=== PATIENT | male | born 1955 | race Caucasian/White ===

== ENCOUNTER 2016-12-31 10:17 | Outpatient (CLI) | payer BC ==
--- NOTE | 2016-12-31 13:18 | RAD ---
LUMBAR SPINE TWO VIEW: History: Low back pain, right leg pain. Surgery 6 weeks ago. Comparison: 03-12-16 FINDINGS: New posterior fusion at L2-3 without hardware complication. Retrolisthesis is similar. No new acute superimposed fracture or malalignment. Mild narrowing L4-5 and L5-S1. Calcifications of the aorta are present. IMPRESSION: Posterior spinal fusion at L2-3 without hardware complication. POS: [facility]IST
== END 2016-12-31 10:18 | disposition home or self-care (01) ==
LOC: TBSIIMAG 10:17
PROVIDERS: ATTEND Neurological Surgery
DX: M54.5 Low back pain (principal); Z98.1 Arthrodesis status
CPT/HCPCS: 72100